=== PATIENT | male | born 1990 | race Caucasian/White ===

== ENCOUNTER 2017-04-28 15:36 | Emergency (ER) | payer BC, MEDICAID ==
[2017-04-28] MEDS ORDERED: Lidocaine 2% VISCOUS* 15 ML UDC PO ONE (16:28)
[2017-04-28] MEDS ORDERED: Al Hydrox/Mg Hydrox/Simet LIQ* 30 ML UDC PO ONE (16:28)
--- NOTE | 2017-04-28 17:03 | RAD ---
HISTORY: Epigastric pain, abdominal pain COMPARISONS: None VIEWS: Frontal supine and upright views of the abdomen. FINDINGS: BOWEL: There is a nonobstructive bowel gas pattern. There is a large amount of stool within the colon. CALCULI: There are no abnormal calculi. BONES AND SOFT TISSUES: There are no osseous abnormalities. OTHER FINDINGS: The lung bases are clear. There is no subphrenic gas. IMPRESSION: NONOBSTRUCTIVE BOWEL GAS PATTERN. NO SUBPHRENIC GAS.
[2017-04-28] MEDS: NS 0.9% 1000 ML* 2,000 ML IV ONE (17:32)
[2017-04-28 17:38] LABS: Hematocrit 46 % (42-52); Hemoglobin 15.6 g/dl (14.0-18.0); Mean Corpuscular HGB Conc 34 g/dl (31-36); Mean Corpuscular Hemoglobin 27 pg (27-31); Mean Corpuscular Volume 79 fL (80-94); Mean Platelet Volume 8 um3 (7.4-10.4); Red Blood Count 5.82 10^6/ul (4.0-5.4); Red Cell Distribution Width 15 % (10.5-15); White Blood Count 10.9 10^3/ul (3.5-10.8)
[2017-04-28 17:53] LABS: Albumin 4.8 g/dL (3.2-5.2); BUN/Creatinine Ratio 11.2 (8-20); C Reactive Protein 4.17 mg/L (< 5.00); Calcium 10.3 mg/dL (8.6-10.3); EGFR African American 120.8 (>60); Globulin 1.9 g/dL (2-4); Potassium 3.9 mmol/L (3.5-5.0); Total Protein 6.7 g/dL (6.4-8.9)
[2017-04-28] MEDS ORDERED: Iohexol 300* (CONTRAST) 10 ML SDV IV ONE (18:14)
--- NOTE | 2017-04-28 18:48 | RAD ---
HISTORY: Upper abdominal pain COMPARISONS: None TECHNIQUE: Multiple transverse and longitudinal ultrasound images were obtained of the right upper quadrant of the abdomen using grayscale and color Doppler imaging. FINDINGS: The study is limited by patient bowel gas. LIVER: The liver is diffusely echogenic and coarse in echotexture, with decreased acoustic transmission. The liver measures up to 18.6 cm in long axis.. There is normal hepatopedal flow of the portal vein on Doppler imaging. BILIARY TREE: There is no intrahepatic or extrahepatic biliary dilatation. The common duct measures 0.4 cm. GALLBLADDER: The gallbladder is well-visualized. There is no cholelithiasis, gallbladder wall thickening, pericholecystic fluid, or sonographic Muniz sign. PANCREAS: The pancreas is obscured by overlying bowel gas. RIGHT KIDNEY: The right kidney is normal in shape, size, contour, and echogenicity. There is no hydronephrosis or nephrolithiasis. The right kidney measures 11.9 x 6 x 7.8 cm. AORTA AND IVC: The aorta and IVC are unremarkable. FLUID: There are no pleural effusions. There is no free fluid within the hepatorenal recess. OTHER FINDINGS: None. IMPRESSION: FATTY INFILTRATION OF THE LIVER WITH MILD HEPATOMEGALY.
--- NOTE | 2017-04-28 19:04 | RAD ---
CLINICAL HISTORY: Upper abdominal pain COMPARISON: Ultrasound dated April 28, 2017 TECHNIQUE: Multiple contiguous axial CT scans were obtained of the abdomen and pelvis after the administration of intravenous contrast. Coronal and sagittal multiplanar reformations are submitted for review. Oral contrast was administered. Delayed images were obtained through the abdomen and pelvis. FINDINGS: LUNG BASES: The lung bases are clear. LIVER: The liver is diffusely low in attenuation compared to the spleen. There are no focal hepatic parenchymal masses. BILE DUCTS: There is no intrahepatic or extrahepatic biliary dilatation. GALLBLADDER: The gallbladder is normal, without pericholecystic inflammatory change. PANCREAS: The pancreas is normal, without mass or ductal dilatation. SPLEEN: Normal in size and appearance. UPPER GI TRACT: Evaluation of the gastrointestinal tract is limited by incomplete gastric distention. There is mucosal thickening of the gastric antrum and the pylorus, though this may be accentuated by incomplete gastric distention. SMALL BOWEL AND MESENTERY: The small bowel is normal in contour, course, and caliber. There is no obstruction or dilatation. COLON: The colon is normal in contour, course, caliber. There is no pericolonic inflammatory change. The appendix is not clearly visualized. There are small lymph nodes within the right lower quadrant mesentery. ADRENALS: Normal bilaterally. KIDNEYS: The kidneys are normal in shape, size, contour, and axis. There is no hydronephrosis or nephrolithiasis. BLADDER: The bladder is smooth in contour. PELVIC ORGANS: The prostate gland is normal. The seminal vesicles are symmetric. AORTA: The aorta is normal. IVC: Unremarkable LYMPH NODES: There is no lymphadenopathy by size criteria. ABDOMINAL WALL: There is no evidence for abdominal wall hernia. BONES AND SOFT TISSUES: Unremarkable OTHER: None IMPRESSION: 1. FATTY INFILTRATION OF THE LIVER. 2. THERE IS MUCOSAL THICKENING OF THE DISTAL STOMACH, SUGGESTIVE OF AN INFLAMMATORY PROCESS OF THE GASTRIC MUCOSA. THIS MAY BE ACCENTUATED BY INCOMPLETE GASTRIC DISTENTION. RECOMMEND CONSIDERATION OF CORRELATION WITH DIRECT VISUALIZATION IN THE NONACUTE SETTING.
[2017-04-28 19:17] LABS: Urine Bilirubin Negative (Negative); Urine Glucose Negative (Negative); Urine Nitrite Negative (Negative)
--- NOTE | 2017-04-28 19:20 | ED ---
Bryn Uribe Benjamin, scribed for Mic Grant MD on 04/28/17 at 1629 . Abdominal Pain/Male - HPI Summary HPI Summary: 26yo male c/o epigastric pain for 2 days. Pt days ago, pt had 2 episodes of forceful vomiting, and pt states the pain started after that. Pt reported burning sensation initially but not anymore. Pain comes and goes, and is not aggravated by movement. Tums helped but only slightly and temporarily. Eating seems to help slightly as well. Denies fever or chills. Pt also admits slight rectal bleeding, but it is normal for the pt since pt is constipated, and often has to force his bowel out, which at times gives him hemorrhoid and slight bleeding. No hx of abdominal surgery. - History of Current Complaint Chief Complaint: EDNauseaVomitDiarrh Stated Complaint: ABD PAIN Time Seen by Provider: 04/28/17 16:15 Hx Obtained From: Patient, Family/Material Handler - S/O Onset/Duration: Gradual Onset, Lasting Days, Still Present Timing: Intermittent Severity Initially: Moderate Severity Currently: Moderate Pain Intensity: 6 Pain Scale Used: 0-10 Numeric Location: Epigastric Radiates: No Aggravating Factor(s): Nothing Alleviating Factor(s): Antacids - tums helps somewhat, Other: - eating Associated Signs And Symptoms: Positive: Nausea, Vomiting. Negative: Diarrhea - Allergies/Home Medications Allergies/Adverse Reactions: Allergies Allergy/AdvReac Type Severity Reaction Status Date / Time Bee Venom Allergy Hives/Diff. Verified 09/27/15 18:53 Breathing/I tching PMH/Surg Hx/FS Hx/Imm Hx Endocrine/Hematology History: Reports: Hx Thyroid Disease Denies: Hx Anticoagulant Therapy Respiratory History: Reports: Hx Asthma GI History: Reports: Hx Gastroesophageal Reflux Disease Sensory History: Reports: Hx Contacts or Glasses Opthamlomology History: Reports: Hx Contacts or Glasses Psychiatric History: Reports: Hx Attention Deficit Hyperactivity Disorder, Hx Bipolar Disorder Infectious Disease History: Yes Infectious Disease History: Denies: Hx Human Immunodeficiency Virus (HIV), Hx of Known/Suspected MRSA, Traveled Outside the [place] in Last 30 Days - Family History Known Family History: Positive: Diabetes - Social History Occupation: Employed Full-time Lives: With Family Alcohol Use: Rare Substance Use Type: Reports: None Smoking Status (MU): Former Smoker Review of Systems Constitutional: Negative Eyes: Negative ENT: Negative Cardiovascular: Negative Respiratory: Negative Positive: Abdominal Pain - epigastric, Vomiting, Nausea. Negative: Diarrhea Genitourinary: Negative Musculoskeletal: Negative Skin: Negative Neurological: Negative Psychological: Normal All Other Systems Reviewed And Are Negative: Yes Physical Exam - Summary Physical Exam Summary: General: well-appearing, no pain distress Skin: warm, color reflects adequate perfusion, dry Head: normal Eyes: EOMI, OLGA ENT: normal Neck: supple, nontender Respiratory: CTA, breath sounds present Cardiovascular: RRR Abdomen: soft, epigastrium mildly tender to palpation Bowel: present Musculoskeletal: normal, strength/ROM intact Neurological: normal, sensory/motor intact, A&O x3 Psychological: affect/mood appropriate Triage Information Reviewed: Yes Vital Signs On Initial Exam: Initial Vitals Temp Pulse Resp BP Pulse Ox 97.3 F 70 18 128/82 98 04/28/17 15:49 04/28/17 15:49 04/28/17 15:49 04/28/17 15:49 04/28/17 15:49 Vital Signs Reviewed: Yes Diagnostics - Vital Signs Vital Signs Temp Pulse Resp BP Pulse Ox 04/28/17 15:49 97.3 F 70 18 128/82 98 - Laboratory Lab Results: Lab Results 04/28/17 04/28/17 04/28/17 Range/Units 17:29 17:29 17:29 WBC 10.9 H (3.5-10.8) 10^3/ul RBC 5.82 H (4.0-5.4) 10^6/ul Hgb 15.6 (14.0-18.0) g/dl Hct 46 (42-52) % MCV 79 L (80-94) fL MCH 27 (27-31) pg MCHC 34 (31-36) g/dl RDW 15 (10.5-15) % Plt Count 269 (150-450) 10^3/ul MPV 8 (7.4-10.4) um3 Neut % (Auto) 76.0 (38-83) % Lymph % (Auto) 18.0 L (25-47) % Riley % (Auto) 5.1 (1-9) % Eos % (Auto) 0 (0-6) % Baso % (Auto) 0.9 (0-2) % Absolute Neuts (auto) 8.3 H (1.5-7.7) 10^3/ul Absolute Lymphs (auto) 2.0 (1.0-4.8) 10^3/ul Absolute Monos (auto) 0.5 (0-0.8) 10^3/ul Absolute Eos (auto) 0 (0-0.6) 10^3/ul Absolute Basos (auto) 0.1 (0-0.2) 10^3/ul Absolute Nucleated RBC 0.01 10^3/ul Nucleated RBC % 0.1 Sodium 137 (133-145) mmol/L Potassium 3.9 (3.5-5.0) mmol/L Chloride 102 (101-111) mmol/L Carbon Dioxide 28 (22-32) mmol/L Anion Gap 7 (2-11) mmol/L BUN 11 (6-24) mg/dL Creatinine 0.98 (0.67-1.17) mg/dL Est GFR ( Amer) 120.8 (>60) Est GFR (Non-Af Amer) 94.0 (>60) BUN/Creatinine Ratio 11.2 (8-20) Glucose 88 (70-100) mg/dL Lactic Acid 1.0 (0.5-2.0) mmol/L Calcium 10.3 (8.6-10.3) mg/dL Total Bilirubin 1.00 (0.2-1.0) mg/dL AST 21 (13-39) U/L ALT 33 (7-52) U/L Alkaline Phosphatase 70 (34-104) U/L C-Reactive Protein 4.17 (< 5.00) mg/L Total Protein 6.7 (6.4-8.9) g/dL Albumin 4.8 (3.2-5.2) g/dL Globulin 1.9 L (2-4) g/dL Albumin/Globulin Ratio 2.5 (1-3) Lipase 20 (11.0-82.0) U/L Result Diagrams: 04/28/17 17:29 04/28/17 17:29 Lab Statement: Any lab studies that have been ordered have been reviewed, and results considered in the medical decision making process. - Radiology abdomen XR Xray Interpretation: No Acute Changes - IMPRESSION: NONOBSTRUCTIVE BOWEL GAS PATTERN. NO SUBPHRENIC GAS. Radiology Interpretation Completed By: Radiologist - BP noted and advised to follow up with PCP. Allergies noted. Medications reviewed. Abdominal Pain Fem Course/Dx - Course Course Of Treatment: BP noted and advised to follow up with PCP. Allergies noted. Medications reviewed. Assessment/Plan: DISCUSSED RESULTS WITH PATIENT. F/U WITH PMD; RETURN IF WORSE. - Diagnoses Provider Diagnoses: Abdominal pain, Gastritis Discharge - Discharge Plan Condition: Stable Disposition: HOME Prescriptions: Omeprazole CAP* [Prilosec CAP* 20 MG] 20 mg PO BID #30 cap. Sucralfate TAB* [Carafate*] 1 gm PO QID #60 tab Patient Education Materials: Acute Abdominal Pain (ED), Gastritis (ED) Referrals: Flako Curry DO [Primary Care Provider] - Additional Instructions: FOLLOW UP WITH YOUR DOCTOR. RETURN TO THE EMERGENCY DEPARTMENT FOR ANY WORSENING OF YOUR CONDITION; PAIN, FEVER, VOMITING, YOU FEEL ILL OR QUESTIONS OR CONCERNS. The documentation as recorded by the Bryn aguilar Benjamin accurately reflects the service I personally performed and the decisions made by me, Mic Grant MD.
[2017-04-28] MEDS ORDERED: Omeprazole CAP* 20 MG PO ONE (19:29)
[2017-04-28 19:49] VITALS: BP 154/84
== END 2017-04-28 19:52 | disposition home or self-care (01) ==
LOC: ED 15:36
DX: R11.2 Nausea with vomiting, unspecified (principal)
CPT/HCPCS: 36415; 74020; 74177; 76705; 80053; 81003; 83605; 83690; 85025; 86140; 99283; A9270-GY; Q9967

== ENCOUNTER 2019-02-19 15:38 | Emergency (ER) | payer MEDICARE, MEDICAID ==
[2019-02-19 16:11] VITALS: BP 128/83
--- NOTE | 2019-02-19 16:24 | UC ---
Skin Complaint HPI - HPI Summary HPI Summary: 28-year-old male presents with complaints of redness, swelling, and tenderness to the lateral nail fold of his left middle finger that started yesterday. States he thinks he pulled off a hangnail the previous day. Today he did some warm soaks of the finger and did note a little bit of white colored discharge when he pressed over the area of tenderness. No history of MRSA. Denies fever , chills, joint pain, decreased range of motion, numbness, or tingling. - History of Current Complaint Chief Complaint: UCUpperExtremity Time Seen by Provider: 02/19/19 16:03 Stated Complaint: FINGER PAIN Hx Obtained From: Patient Pain Intensity: 6 - Allergy/Home Medications Allergies/Adverse Reactions: Allergies Allergy/AdvReac Type Severity Reaction Status Date / Time bee venom protein (honey bee) Allergy Hives/Diff. Verified 02/19/19 16:04 Breathing/I tching MS Bee Venom [Bee Venom] Allergy Hives/Diff. Verified 09/27/15 18:53 Breathing/I tching Home Medications: Home Medications Lurasidone(*) [Latuda] 20 mg PO QPM 02/19/19 [History Confirmed 02/19/19] Lurasidone(*) [Latuda] 80 mg PO QPM 02/19/19 [History Confirmed 02/19/19] Melatonin 10 mg PO BEDTIME 02/19/19 [History Confirmed 02/19/19] Metformin ER (NF) 750 mg PO DAILY 02/19/19 [History Confirmed 02/19/19] Montelukast Sodium TAB* [Singulair 10 MG TAB*] 10 mg PO DAILY 02/19/19 [History Confirmed 02/19/19] lamoTRIgine [Lamictal] 150 mg PO BID 02/19/19 [History Confirmed 02/19/19] PMH/Surg Hx/FS Hx/Imm Hx Endocrine History: Diabetes GI/ History: Gastroesophageal Reflux Psychological History: Anxiety Other History Of: Negative For: Anticoagulant Therapy - Surgical History Surgical History: Yes Surgery Procedure, Year, and Place: ORAL SURGERY 2013 - Family History Known Family History: Positive: Diabetes - Social History Occupation: Employed Full-time Lives: With Family Alcohol Use: Rare Substance Use Type: None Smoking Status (MU): Former Smoker Review of Systems All Other Systems Reviewed And Are Negative: Yes Constitutional: Negative: Fever, Chills Skin: Positive: Other - See HPI Respiratory: Positive: Negative Cardiovascular: Positive: Negative Gastrointestinal: Positive: Negative Genitourinary: Positive: Negative Musculoskeletal: Positive: Negative Neurological: Positive: Negative Is Patient Immunocompromised?: No Physical Exam - Summary Physical Exam Summary: GENERAL APPEARANCE: Well developed, well nourished, alert and cooperative, and appears to be in no acute distress. CARDIAC: Normal S1 and S2. No S3, S4 or murmurs. Rhythm is regular. There is no peripheral edema, cyanosis or pallor. Extremities are warm and well perfused. Capillary refill is less than 2 seconds. Peripheral pulses intact. LUNGS: Clear to auscultation without rales, rhonchi, wheezing or diminished breath sounds. ABDOMEN: Positive bowel sounds. Soft, nondistended, nontender. No guarding or rebound. No masses or hepatosplenomegally. MUSKULOSKELETAL: ROM intact to all extremities. No joint erythema or tenderness. Normal muscular development. Normal gait. EXTREMITIES: Tenderness with erythema to the lateral nailfold of the left middle finger without fluctuance or drainage. SKIN: Skin normal color, texture and turgor. Triage Information Reviewed: Yes Vital Signs: Initial Vital Signs Temp 98.6 F 02/19/19 16:07 Pulse 82 02/19/19 16:07 Resp 18 02/19/19 16:07 BP 128/83 02/19/19 16:07 Pulse Ox 99 02/19/19 16:07 Vital Signs Reviewed: Yes Course/Dx - Course Course Of Treatment: 28-year-old male presents with complaints of redness, swelling, and tenderness to the lateral nail fold of his left middle finger that started yesterday. States he thinks he pulled off a hangnail the previous day. Today he did some warm soaks of the finger and did note a little bit of white colored discharge when he pressed over the area of tenderness. No history of MRSA. Denies fever , chills, joint pain, decreased range of motion, numbness, or tingling. Afebrile. Vital signs stable. Patient had tenderness with erythema to the lateral nailfold of the left middle finger without fluctuance or drainage. Remainder of exam was unremarkable. Recommending conservative treatment for a paronychia without abscess of the left middle finger including warm soaks with water and chlorhexidine solution at least 4 times a day and application of mupirocin ointment after each soak. He is to return here or follow up with his primary care provider in 3 days if symptoms do not improve. Anticipatory guidance and warning symptoms reviewed with the patient. Verbalizes understanding and agrees with plan of care. - Differential Diagnoses - Skin Complaint Differential Diagnoses: Cellulitis, MRSA, Other - Paronychia - Diagnoses Provider Diagnosis: Paronychia of finger of left hand Discharge ED - Sign-Out/Discharge Documenting (check all that apply): Patient Departure All imaging exams completed and their final reports reviewed: No Studies - Discharge Plan Condition: Stable Disposition: HOME Patient Education Materials: Paronychia (ED) Referrals: Zenaida Osman MD [Primary Care Provider] - 3 Days Additional Instructions: Soak your finger for 15 minutes in a warm water and chlorhexadine solution at least 4 times a day. After each soak apply a small amount of mupirocin ointment to the affected area and cover with an adhesive dressing. Return here or follow up with your primary care provider in 3 days if no improvement in symptoms. Seek immediate medical attention if you develop fever greater than 100.5 F, the redness rapidly spreads, increased swelling of the finger, severe pain that is not managed with over the counter pain medications, or any worsening of symptoms. - Billing Disposition and Condition Condition: STABLE Disposition: Home
[2019-02-19] MEDS ORDERED: Mupirocin 2% OINT* TUBE TOPICAL ONE (16:31)
== END 2019-02-19 16:53 | disposition home or self-care (01) ==
LOC: UCEAST 15:38
DX: L03.012 Cellulitis of left finger (principal); E11.9 Type 2 diabetes mellitus without complications; K21.9 Gastro-esophageal reflux disease without esophagitis; F41.9 Anxiety disorder, unspecified; Z79.890 Hormone replacement therapy; Z79.899 Other long term (current) drug therapy; Z79.84 Long term (current) use of oral hypoglycemic drugs; Z91.030 Bee allergy status; Z87.891 Personal history of nicotine dependence
CPT/HCPCS: 99212; G0463

== ENCOUNTER 2019-02-26 22:45 | Emergency (ER) | payer MEDICARE, MEDICAID ==
--- NOTE | 2019-02-27 00:19 | ED ---
Head Injury - HPI Summary HPI Summary: Patient complains of a chemical fall in the shower tonight and subsequently hitting head on faucet as he fell. States LOC for a few seconds. Subsequently sensitive to light, headache with brief episode of blurry vision. Denies any other pain, injury or symptoms. - History Of Current Complaint Chief Complaint: EDHeadInjury Stated Complaint: HEAD INJURY PER PT Time Seen by Provider: 02/26/19 23:28 Hx Obtained From: Patient, Family/Hospital Supervisor Mechanism Of Injury: Direct Blow Onset/Duration: Started Hours Ago Onset of Pain: Immediate Severity Currently: Mild Severity Initially: Mild Pain Intensity: 1 Pain Scale Used: 0-10 Numeric Location of Head Injury: Diffuse Character: Dull Associated Signs And Symptoms: LOC (Time In Secs./Mins/Hrs) - Allergies/Home Medications Allergies/Adverse Reactions: Allergies Allergy/AdvReac Type Severity Reaction Status Date / Time bee venom protein (honey bee) Allergy Hives/Diff. Verified 02/26/19 22:49 Breathing/I tching seasonal Allergy Runny Nose Uncoded 02/27/19 00:05 Home Medications: Home Medications Gabapentin 300 mg PO TID PRN 02/27/19 [History Confirmed 02/27/19] raNITIdine HCl [Zantac 75] 150 mg PO 02/27/19 [History] PMH/Surg Hx/FS Hx/Imm Hx Endocrine/Hematology History: Reports: Hx Thyroid Disease Denies: Hx Anticoagulant Therapy Cardiovascular History: Denies: Hx Pacemaker/ICD Respiratory History: Reports: Hx Asthma GI History: Reports: Hx Gastroesophageal Reflux Disease History: Denies: Hx Dialysis Musculoskeletal History: Denies: Hx Gout Sensory History: Reports: Hx Contacts or Glasses Opthamlomology History: Reports: Hx Contacts or Glasses EENT History: Denies: Hx Deafness Psychiatric History: Reports: Hx Attention Deficit Hyperactivity Disorder, Hx Bipolar Disorder - Surgical History Surgery Procedure, Year, and Place: ORAL SURGERY 2013 Infectious Disease History: No Infectious Disease History: Denies: Hx Human Immunodeficiency Virus (HIV), Hx of Known/Suspected MRSA, Traveled Outside the [place] in Last 30 Days - Family History Known Family History: Positive: Diabetes - Social History Alcohol Use: Rare Substance Use Type: Reports: Marijuana Substance Use Comment - Amount & Last Used: "vaping cbd" Smoking Status (MU): Former Smoker Review of Systems Constitutional: Negative Positive: Photophobia, Blurred Vision ENT: Negative Cardiovascular: Negative Respiratory: Negative Gastrointestinal: Negative Genitourinary: Negative Musculoskeletal: Negative Skin: Negative Positive: Headache Psychological: Normal All Other Systems Reviewed And Are Negative: Yes Physical Exam - Summary Physical Exam Summary: Neuro exam normal. There is small hematoma to the posterior right head. No wounds noted. No pain with palpation of neck. Full range of motion of jaw. No intraoral trauma noted. Triage Information Reviewed: Yes Vital Signs On Initial Exam: Initial Vitals Temp Pulse Resp BP Pulse Ox 97.4 F 75 15 151/86 97 02/26/19 22:48 02/26/19 22:48 02/26/19 22:48 02/26/19 22:48 02/26/19 22:48 Vital Signs Reviewed: Yes Appearance: Positive: Well-Appearing Skin: Positive: Warm Head/Face: Positive: Normal Head/Face Inspection Eyes: Positive: Normal ENT: Positive: Normal ENT inspection Dental: Negative: Dental Fracture @, Bleeding Neck: Positive: Supple Respiratory/Lung Sounds: Positive: Clear to Auscultation Cardiovascular: Positive: Normal Abdomen Description: Positive: Nontender Musculoskeletal: Positive: Normal Neurological: Positive: Normal Psychiatric: Positive: Normal AVPU Assessment: Alert - Peebles Coma Scale Best Eye Response: 4 - Spontaneous Best Motor Response: 6 - Obeys Commands Best Verbal Response: 5 - Oriented Coma Scale Total: 15 Procedures - Sedation Patient Received Moderate/Deep Sedation with Procedure: No Diagnostics - Vital Signs Vital Signs Temp Pulse Resp BP Pulse Ox 02/26/19 22:48 97.4 F 75 15 151/86 97 - Laboratory Lab Statement: Any lab studies that have been ordered have been reviewed, and results considered in the medical decision making process. Head Injury Course/Dx Course Of Treatment: Patient complains of a chemical fall in the shower tonight and subsequently hitting head on faucet as he fell. States LOC for a few seconds. Subsequently sensitive to light, headache with brief episode of blurry vision. Denies any other pain, injury or symptoms. Vital signs within normal limits. No indication for CT brain. Diagnosis likely concussion. - Diagnoses Provider Diagnoses: Concussion Discharge ED - Sign-Out/Discharge Documenting (check all that apply): Patient Departure - Discharge Plan Condition: Stable Disposition: HOME Patient Education Materials: Concussion (ED) Referrals: Zenaida Osman MD [Primary Care Provider] - Additional Instructions: Symptoms of concussion may come and go, and may be triggered by bright lights, television, stones, exertion. Symptoms may be nausea, difficulty focusing, dizziness, headache. Take Tylenol or ibuprofen for headache. Avoid activities that involve risk of repeat head injury until cleared by primary care. Return to the ED for any worsening symptoms.. - Billing Disposition and Condition Condition: STABLE Disposition: Home
[2019-02-27 00:29] VITALS: BP 126/91
== END 2019-02-27 00:28 | disposition home or self-care (01) ==
LOC: ED 22:45
DX: S06.0X1A Concussion with loss of consciousness of 30 minutes or less, initial encounter (principal); W18.2XXA Fall in (into) shower or empty bathtub, initial encounter; Y93.E1 Activity, personal bathing and showering; Y92.002 Bathroom of unspecified non-institutional (private) residence as the place of occurrence of the external cause; K21.9 Gastro-esophageal reflux disease without esophagitis; Z91.030 Bee allergy status; Z87.891 Personal history of nicotine dependence
CPT/HCPCS: 99282

== ENCOUNTER 2021-04-19 21:52 | Inpatient (IN) ==
[2021-04-19 22:53] LABS: Urine Appearance Clear; Urine Bilirubin Negative (Negative); Urine Blood Negative (Negative); Urine Color Yellow; Urine Glucose Negative (Negative); Urine Ketones Negative (Negative); Urine Nitrite Negative (Negative); Urine Protein Negative (Negative); Urine Urobilinogen Negative (Negative)
[2021-04-19 22:55] LABS: Urine Benzodiazepine Screen None Detected (None Detect); Urine Cannabinoids Screen Presumptive Positive (None Detect); Urine Opiates Screen None Detected (None Detect)
[2021-04-19 23:25] LABS: ABS Basophils 0.1 10^3/ul (0-0.2); ABS Lymphocytes 2.4 10^3/ul (1.0-4.8); ABS Monocytes 0.5 10^3/ul (0-0.8); ABS Neutrophils 6.7 10^3/ul (1.5-7.7); Hematocrit 44 % (42-52); Hemoglobin 15.2 g/dL (14.0-18.0); Lymphocyte % 24.7 %; Mean Corpuscular HGB Conc 35 g/dL (31-36); Mean Corpuscular Hemoglobin 27 pg (27-31); Mean Corpuscular Volume 78 fL (80-94); Mean Platelet Volume 7.7 fL (7.4-10.4); Platelet Count 303 10^3/uL (150-450); Red Blood Count 5.59 10^6 /uL (4.18-5.48); Red Cell Distribution Width 15 % (10-15); White Blood Count 9.8 10^3/uL (3.5-10.8)
[2021-04-19 23:40] LABS: ALT 49 U/L (7-52); AST 25 U/L (13-39); Albumin 4.9 g/dL (3.2-5.2); Albumin/Globulin Ratio 2.3 (1-3); Alkaline Phosphatase 82 U/L (35-149); Anion Gap 9 mmol/L (2-11); Blood Urea Nitrogen 9 mg/dL (6-24); CO2 Carbon Dioxide 26 mmol/L (22-32); Calcium 10.1 mg/dL (8.6-10.3); Chloride 105 mmol/L (101-111); Globulin 2.1 g/dL (2-4); Glucose 131 mg/dL (70-100); Potassium 3.4 mmol/L (3.5-5.0); Sodium 140 mmol/L (135-145); eGFR CKD-EPI 124.1 (>60)
[2021-04-19 23:42] LABS: Acetaminophen < 15 mcg/mL; Alcohol, S < 13 mg/dL (<13); Salicylate < 2.50 mg/dL (<30)
[2021-04-19 23:56] LABS: TSH Ultra Thyroid Stim Horm 2.33 mcIU/mL (0.34-5.60)
[2021-04-20] MEDS ORDERED: Lurasidone 120 mg TAB PO ONE (01:16)
[2021-04-20 02:34] LABS: Rapid COVID-19 Molecular Undetected (Undetected)
[2021-04-20] MEDS ORDERED: Al Hydrox/Mg Hydrox/Simet LIQ 30 ML UDC PO PRN (02:45)
[2021-04-20] MEDS: Vitamin THERAPEUTIC TAB PO SCH (09:44)
[2021-04-20] MEDS: Lurasidone 120 mg TAB PO SCH (20:23)
[2021-04-21] MEDS: Vitamin THERAPEUTIC TAB PO SCH (08:48)
[2021-04-21] MEDS: Lurasidone 120 mg TAB PO SCH (20:36)
[2021-04-21 21:51] VITALS: BP 147/84
[2021-04-22] MEDS: Vitamin THERAPEUTIC TAB PO SCH (08:47)
== END 2021-04-22 16:20 | disposition home or self-care (01) | DRG 885 ==
LOC: ED 21:52 → BSU 04-20 02:09
PROVIDERS: ADMIT Psychiatry & Neurology Addiction Psychiatry; ATTEND Psychiatry & Neurology Addiction Psychiatry